=== PATIENT | male | born 1995 | race Hispanic/Latino ===

== ENCOUNTER 2020-01-28 15:45 | Emergency (ER) | payer MEDICAID, OTHER ==
[2020-01-28 16:20] LABS: #Basophils 0.1 thou/uL (0.0-0.2); #Eosinphils 0.1 thou/uL (0.0-0.7); #Lymphocytes 1.7 thou/uL (1.20-3.40); #Monocytes 0.5 thou/uL (0.11-0.59); #Neutrophils 3.3 thou/uL (1.40-6.50); %Basophils 1.2 % (0.0-1.0); %Eosinophils 1.9 % (0.0-10.0); %Lymphocytes 30.3 % (21.0-51.0); %Monocytes 9.4 % (0.0-10.0); %Neutrophils 57.3 % (42.0-75.0); Hemoglobin 16.4 g/dL (14.0-18.0); Mean Corpuscular HGB CONC 35.1 g/dL (32.0-36.0); Mean Corpuscular Hemoglobin 32.2 pg (27.0-31.0); Mean Corpuscular Volume 91.8 fL (78.0-98.0); Mean Platelet Volume 8.3 fL (7.4-10.4); Platelet Count 227 thou/uL (130-400); RBC Distribution Width 11.6 % (11.5-14.5); Red Blood Cell (RBC) Count 5.09 mill/uL (4.70-6.10); White Blood Cell (WBC) Count 5.8 thou/uL (4.8-10.8)
[2020-01-28 16:43] LABS: ALT (SGPT) 68 U/L (8-55); AST (SGOT) 35 U/L (5-34); Albumin 4.4 g/dL (3.5-5.0); Alkaline Phosphatase 86 U/L (40-110); Anion Gap 13 mmol/L (10-20); BUN (Urea Nitrogen) 12 mg/dL (8.9-20.6); Bilirubin, Total 0.5 mg/dL (0.2-1.2); Calc. Creatinine Clearance 0 mL/min (70-130); Calcium 9.2 mg/dL (7.8-10.44); Carbon Dioxide 24 mmol/L (22-29); Chloride 105 mmol/L (98-107); Estimated GFR-MDRD Greater than 90; Globulin 2.9 g/dL (2.4-3.5); Glucose 99 mg/dL (70-105); Potassium 3.9 mmol/L (3.5-5.1); Protein, Total 7.3 g/dL (6.0-8.3); Sodium 138 mmol/L (136-145)
[2020-01-28 16:50] LABS: Bilirubin Negative (Negative); Blood, Urine Negative (Negative); Clarity Clear (Clear); Glucose, Urine (Dipstick) Normal (Negative); Ketone, Urine Negative (Negative); Leukocyte Negative Leu/uL (Negative); Nitrite Negative (Negative); Protein, Urine (Dipstick) Negative (Neg-Trace); Specific Gravity, Urine 1.025 (1.002-1.036); Urobilinogen Normal mg/dL (Less than 2)
--- NOTE | 2020-01-28 16:54 | RAD ---
Left hand 3 views: 01/28/2020 COMPARISON: None HISTORY: Enlarging mass involving the index finger FINDINGS: There is a lobulated area of masslike soft tissue density along the medial aspect of the in dex finger distally, medial to the second distal phalanx. No associated gas or calcification. No associated fracture or foreign body. This soft tissue mass measures at least 1 cm in greatest dimensi on. IMPRESSION: Nonspecific soft tissue mass along the medial aspect of the index finger distally. This c ould represent a neoplastic process or could be related to infection. Clinical correlation is essential. MRI of the hand with and without contrast would be the study of ch oice for full assessment. This case was discussed with Dr. Saleem 4:50 PM 01/28/2020
== END 2020-01-28 17:20 | disposition home or self-care (01) ==
LOC: ERS 15:45
DX: L98.499 Non-pressure chronic ulcer of skin of other sites with unspecified severity (principal); R22.32 Localized swelling, mass and lump, left upper limb
CPT/HCPCS: 36415; 80053; 81003; 85025; 85652; 86140

== ENCOUNTER 2020-02-19 05:52 | Outpatient (CLI) | payer OTHER ==
[2020-02-19 11:19] LABS: #Eosinphils 0.1 10x3/uL (0.0-0.5); #Monocytes 0.6 10x3/uL (0.0-1.1); #Neutrophils 2.8 10x3/uL (1.5-8.4); %Basophils 0.6 % (0.0-2.0); %Eosinophils 2.9 % (0.0-6.0); %Lymphocytes 26.7 % (18.0-47.0); %Monocytes 12.8 % (0.0-10.0); %Neutrophils 56.6 % (40.0-75.0); Hemoglobin 16.1 g/dL (14.0-18.0); Mean Corpuscular HGB CONC 34.8 G/DL (32.0-36.0); Mean Corpuscular Hemoglobin 31.1 PG (27.0-33.0); Mean Corpuscular Volume 89.4 fl (80.0-100.0); Mean Platelet Volume 10.4 fl (7.4-10.4); Platelet Count 239 10x3/uL (130-400); RBC Distribution Width 11.9 % (11.5-14.5); Red Blood Cell (RBC) Count 5.17 10x6/uL (4.40-5.80); White Blood Cell (WBC) Count 4.9 10x3/uL (4.5-11.0)
[2020-02-20 18:38] LABS: SARS-CoV-2 MS2 Positive; SARS-CoV-2 N Gene Negative; SARS-CoV-2 S Gene Negative; SARS-CoV-2 by NAA Not Detected (NotDetected); SARS-CoV-2 orf1ab Negative
== END 2020-02-19 05:53 | disposition home or self-care (01) ==
LOC: LABBT 05:52
PROVIDERS: ATTEND Orthopaedic Surgery Hand Surgery
DX: Z01.812 Encounter for preprocedural laboratory examination (principal); Z20.828 Contact with and (suspected) exposure to other viral communicable diseases; L98.0 Pyogenic granuloma
CPT/HCPCS: 85025; 87635; U0003

== ENCOUNTER 2020-02-24 12:13 | Day surgery (SDC) | payer OTHER ==
[2020-02-21 13:59] VITALS: BMI 30.2
[2020-02-24] MEDS ORDERED: PROPOFOL 200 MG/20 ML VIAL ONE (13:54)
[2020-02-24] MEDS ORDERED: Lidocaine 1% PF 5 ML VIAL ONE (13:54)
[2020-02-24] MEDS ORDERED: Bupivacaine PF 0.5% 30 ML VIAL ONE (15:09)
[2020-02-24] MEDS ORDERED: Bacitracin Zinc Ointment 30 gm TUBE ONE (15:09)
[2020-02-24] MEDS ORDERED: Fentanyl 100 MCG/2 ML VIAL ONE (15:14)
[2020-02-24] MEDS ORDERED: Midazolam HCl 2 mg/2 ml Vial ONE (15:14)
[2020-02-24] MEDS ORDERED: Ketorolac Tromethamine 30 MG/ML VIAL ONE (17:08)
--- NOTE | 2020-02-25 08:32 | OP ---
DATE OF PROCEDURE: 02/24/2020 PREOPERATIVE DIAGNOSIS: Left index finger pyogenic granuloma. POSTOPERATIVE DIAGNOSIS: Left index finger pyogenic granuloma. FINDINGS: 1.0 cm to 1.1 cm pyogenic granuloma depth approximately 3 mm. No evidence of joint involvement. No nail bed involvement. PROCEDURE PERFORMED: Excision biopsy, left index finger mass consistent with pyogenic granuloma. SPECIMEN SENT: Pyogenic granuloma as described above. ESTIMATED BLOOD LOSS: 5 cc. TOURNIQUET TIME: 6 minutes. DESCRIPTION OF PROCEDURE: After successful general endotracheal anesthesia, the limb was prepped and draped. We gave 10 cc of 0.5% Marcaine prior to procedure, waited for 5 minutes, and exsanguinated the limb and inflated the tourniquet to 250 mmHg pressure. We then outlined an elliptical procedure with a long base in order to have a 2 mm area, where the skin could be closed. We found and preserved the skin margin of 2 mm in the area of the nail, dorsal aspect of this mass, and palmar aspect we identified there was no digital nerve involvement. We gently made the incision after exsanguination and inflation of the tourniquet to 250 mmHg pressure. This was then followed by Pala blade and we saved a 2.5 mm skin margin around the nail bed. We then undermined the palmar aspect, removed the mass completely, and there was no digital nerve involvement. I then sent the mass as specimen and it appeared to be a pyogenic granuloma. The entire mass and any stalk were removed. We irrigated the wound, obtained hemostasis when the tourniquet was deflated, and closed the wound with interrupted simple 4-0 nylon with no tissue damage. All wounds touching the dermis of the other side. The patient then left the operating room with a bulky dressing, a finger tube gauze, and a wrap around the wrist to prevent dislodging. The finger was pink when the tourniquet deflated. Job ID: [id number]
== END 2020-02-24 18:40 | disposition home or self-care (01) ==
LOC: SDC 12:13
PROVIDERS: ATTEND Orthopaedic Surgery Hand Surgery
PROC: 0JBK0ZZ Excision of Left Hand Subcutaneous Tissue and Fascia, Open Approach (ICD-10-PCS; principal; 2020-02-24)
DX: L98.0 Pyogenic granuloma (principal)
CPT/HCPCS: 88305; J0690; J1885; J2250; J2704; J3010; S0020

== ENCOUNTER 2021-03-22 23:00 | Emergency (ER) | payer OTHER ==
[2021-03-22] MEDS ORDERED: Ketorolac Tromethamine 30 MG/ML VIAL ONE (23:38)
[2021-03-22 23:46] LABS: #Basophils 0.1 thou/uL (0.0-0.2); #Eosinphils 0.1 thou/uL (0.0-0.7); #Lymphocytes 2.4 thou/uL (1.20-3.40); #Monocytes 0.6 thou/uL (0.11-0.59); #Neutrophils 3.2 thou/uL (1.40-6.50); %Eosinophils 1.6 % (0.0-10.0); %Lymphocytes 37.9 % (21.0-51.0); %Monocytes 9.4 % (0.0-10.0); %Neutrophils 50.1 % (42.0-75.0); Hemoglobin 16.5 g/dL (14.0-18.0); Mean Corpuscular HGB CONC 35.5 g/dL (32.0-36.0); Mean Corpuscular Hemoglobin 33.4 pg (27.0-31.0); Mean Corpuscular Volume 94.3 fL (78.0-98.0); Mean Platelet Volume 8.1 fL (7.4-10.4); Platelet Count 222 thou/uL (130-400); RBC Distribution Width 11.7 % (11.5-14.5); Red Blood Cell (RBC) Count 4.94 mill/uL (4.70-6.10); White Blood Cell (WBC) Count 6.3 thou/uL (4.8-10.8)
[2021-03-23 00:02] LABS: ALT (SGPT) 68 U/L (8-55); AST (SGOT) 32 U/L (5-34); Albumin 4.3 g/dL (3.5-5.0); Alkaline Phosphatase 76 U/L (40-110); Anion Gap 14 mmol/L (10-20); BUN (Urea Nitrogen) 17 mg/dL (8.9-20.6); Bilirubin, Total 0.8 mg/dL (0.2-1.2); Calc. Creatinine Clearance 0 mL/min (70-130); Calcium 9.6 mg/dL (7.8-10.44); Carbon Dioxide 26 mmol/L (22-29); Chloride 103 mmol/L (98-107); Globulin 2.7 g/dL (2.4-3.5); Glucose 126 mg/dL (70-105); Lipase 18 U/L (8-78); Potassium 3.8 mmol/L (3.5-5.1); Sodium 139 mmol/L (136-145)
== END 2021-03-23 00:45 | disposition home or self-care (01) ==
LOC: ERS 23:00
DX: R07.89 Other chest pain (principal)
CPT/HCPCS: 36415; 71045; 80053; 83690; 84484; 85025; 93005; 94760; 96374; J1885